=== PATIENT | female | born 1975 | race African-American/Black ===

== ENCOUNTER 2021-02-04 18:20 | Emergency (ER) | payer SELFPAY ==
[~2021-02-04] VITALS: Ht 149.9 cm; Wt 77.7 kg
[2021-02-04] MEDS ORDERED: NAPROSYN500 MG PO (19:14)
== END 2021-02-04 19:50 | disposition home or self-care (01) ==
LOC: FSED 18:40
DX: S40.011A Contusion of right shoulder, initial encounter (principal); R20.2 Paresthesia of skin; W22.8XXA Striking against or struck by other objects, initial encounter; F17.210 Nicotine dependence, cigarettes, uncomplicated
CPT/HCPCS: 99283

== ENCOUNTER 2021-06-04 21:49 | Emergency (ER) | payer SELFPAY ==
[~2021-06-04] VITALS: Ht 149.9 cm; Wt 77.6 kg
[~2021-06-04 21:49] MED LIST: NAPROSYN500 MG PO
[2021-06-04] MEDS ORDERED: IBUPROFEN 600 MG TAB PO STA (22:16)
[2021-06-04] MEDS ORDERED: IBUPROFEN600 MG PO (22:29)
[2021-06-04] MEDS ORDERED: CYCLOBENZAPRINE5 MG PO (22:29)
[2021-06-04 23:28] VITALS: BP 134/72
== END 2021-06-04 23:36 | disposition home or self-care (01) ==
LOC: FSED 22:20
DX: M54.2 Cervicalgia (principal); M54.10 Radiculopathy, site unspecified
CPT/HCPCS: 72040; 99283

== ENCOUNTER 2022-01-19 20:33 | Emergency (ER) | payer OTHER ==
[~2022-01-19] VITALS: Ht 154.9 cm; Wt 72.6 kg
[~2022-01-19 20:33] MED LIST changes: +CYCLOBENZAPRINE5 MG PO; +IBUPROFEN600 MG PO
[2022-01-19] MEDS ORDERED: NAPROSYN500 MG PO (22:29)
[2022-01-19] MEDS ORDERED: CYCLOBENZAPRINE10 MG PO (22:30)
== END 2022-01-19 22:41 | disposition home or self-care (01) ==
LOC: FSED 20:40
DX: S13.4XXA Sprain of ligaments of cervical spine, initial encounter (principal); V43.53XA Car driver injured in collision with pick-up truck in traffic accident, initial encounter; Y92.488 Other paved roadways as the place of occurrence of the external cause
CPT/HCPCS: 99282

== ENCOUNTER 2023-04-01 06:37 | Emergency (ER) | payer SELFPAY ==
[~2023-04-01] VITALS: Ht 154.9 cm; Wt 75.8 kg
[~2023-04-01 06:37] MED LIST changes: +CYCLOBENZAPRINE10 MG PO
[2023-04-01] MEDS ORDERED: ROSUVASTATIN CA10 MG (06:58)
[2023-04-01] MEDS ORDERED: KETOROLAC TROMETHAMINE 60 MG/2 ML VIAL IM ONE (07:15)
[2023-04-01] MEDS ORDERED: TRAMADOL HCL 50 MG TAB PO STA (07:58)
[2023-04-01] MEDS ORDERED: CYCLOBENZAPRINE5 MG PO (07:59)
[2023-04-01 08:17] VITALS: O2SAT 100
== END 2023-04-01 08:17 | disposition home or self-care (01) ==
LOC: FSED 06:48
DX: M25.512 Pain in left shoulder (principal); R06.02 Shortness of breath; E78.5 Hyperlipidemia, unspecified; R94.31 Abnormal electrocardiogram [ECG] [EKG]; F17.210 Nicotine dependence, cigarettes, uncomplicated
CPT/HCPCS: 73030; 93005; 96372; 99284; J1885